=== PATIENT | female | born 1965 | race Caucasian/White ===

== ENCOUNTER 2017-02-09 20:42 | Emergency (ER) | payer SELFPAY ==
[~2017-02-09] VITALS: Ht 165.1 cm; Wt 114.0 kg
[~2017-02-09 20:42] MED LIST: DOCU-144 PO; IBUP-1542 PO; LISI10TA2 PO; OMEP40CA6 PO; PEG1POWD PO; TRAM-40 PO
[2017-02-09 21:16] VITALS: Ht 165.1 cm; Wt 114.0 kg
[2017-02-10 00:33] LABS: URINE BLOOD (Dip) POC 2+ (NEGATIVE)
[2017-02-10] MEDS ORDERED: morphine 4 MG/ML VIAL IV STA (00:43)
[2017-02-10] MEDS ORDERED: ONDANSETRON 4 MG INJ IV STA ×2 (00:43→03:11)
[2017-02-10 01:13] LABS: BASOPHIL # 0.1 10^3/ul (0.0-0.1); BASOPHILS % 0.8 % (0.0-2.0); EOSINOPHILS # 0.2 10^3/ul (0.0-0.5); EOSINOPHILS % 1.9 % (0.0-7.0); HEMATOCRIT 46.1 % (37.0-47.0); HEMOGLOBIN 14.6 g/dl (12.0-16.0); LYMPHOCYTES # 2.7 10^3/ul (0.8-2.9); LYMPHOCYTES % 28.6 % (15.0-51.0); MEAN CORPUSCULAR HEMOGLOBIN 29.6 pg (29.0-33.0); MEAN CORPUSCULAR HGB CONC 31.7 g/dl (32.0-37.0); MEAN CORPUSCULAR VOLUME 93.3 fl (82.0-101.0); MEAN PLATELET VOLUME 9.5 fl (7.4-10.4); MONOCYTE # 0.7 10^3/ul (0.3-0.9); MONOCYTES % 7.5 % (0.0-11.0); NEUTROPHILS % 60.4 % (39.0-77.0); PLATELET COUNT 276 10^3/UL (140-415); RED BLOOD COUNT 4.94 10^6/ul (4.20-5.40); WHITE BLOOD COUNT 9.3 10^3/ul (4.8-10.8)
[2017-02-10] MEDS ORDERED: LISI20TA11 PO (01:36)
[2017-02-10 02:16] LABS: ALBUMIN 3.9 g/dl (3.3-4.9); BILIRUBIN,INDIRECT 0.6 mg/dl (0-1.1); BILIRUBIN,TOTAL 0.6 mg/dl (0.2-1.3); CALCIUM 9.3 mg/dl (8.4-10.2); CREATININE 0.64 mg/dl (0.44-1.00); POTASSIUM 3.5 mmol/L (3.5-5.1); TOTAL PROTEIN 7.8 g/dl (6.1-8.1)
[2017-02-10] MEDS ORDERED: SOD CHLORIDE 0.9% 0 ML ONE (02:40)
[2017-02-10] MEDS ORDERED: IOHEXOL 300MG/ML 150 ML BTL ONE (02:40)
[2017-02-10] MEDS ORDERED: HYDROmorphONE 1 MG/ML SYG IV STA (03:11)
[2017-02-10] MEDS ORDERED: HYDROmorphONE 1 MG/ML SYG ONE (03:14)
--- NOTE | 2017-02-10 03:35 | RADRPT ---
PROCEDURE: CT ABDOMEN/PELVIS WITHOUT CONTRAST CLINICAL INDICATION: 51-year-old male with abdominal pain. TECHNIQUE: The study was performed utilizing a [employer] VCT 64-slice CT scanner. Direct axia l sections were obtained through the abdomen and pelvis without the use of intravenous contrast mate rial. Sagittal and coronal reformations were obtained. One or more of the following dose reduction t echniques were utilized: automated exposure control, adjustment of the mA and/or kV according to pat ient's size or use of iterative reconstruction technique. The images were reviewed on a PACS workst [employer]. CTD/vol = 22.9 mGy; Total Exam DLP = 1467.8 mGy-cm. COMPARISON: CT abdomen/pelvis March 11, 2016. FINDINGS: There is minimal bibasilar subsegmental atelectasis. There is a calcified granuloma within the left lung base measuring 5 x 5 mm. There is no evidence for significant pleural effusion. The liver engle s a normal size and contour without focal areas of abnormal density. No intrahepatic nor extrahepati c biliary ductal dilatation is seen. The gallbladder demonstrates no wall thickening nor pericholecy stic fluid. No biliary stones are evident. The pancreas is without areas of abnormal attenuation. T he spleen is identified and has a normal size without abnormal density. The adrenal glands are unrem arkable. The kidneys are without abnormal density. No hydroureteronephrosis nor nephroureterolithias is is evident. The urinary bladder is decompressed. There is no evidence for bowel obstruction. Ther e are multiple small diverticula within the descending and sigmoid colon without surrounding inflamm atory changes. The appendix is visualized and is without abnormal thickening or surrounding inflammatory reaction. The uterus is anteflexed. There is a left ovarian cyst measuring approximatel y 2.1 x 2.0 x 2.0 cm. There is no significant pelvic free fluid. The aortoiliac vessels are withou t aneurysmal dilatation. Mild degenerative changes are present throughout the spine. IMPRESSION: 1. Descending and sigmoid colon diverticulosis. 2. No CT evidence for appendicitis. 3. Left ovarian cyst. 4. Left lung base 5 mm granuloma. 5. Degenerative changes within the spine. .Gilbert Gissel, MD, Date Time Electronically viewed and signed by .Chai Chauhan MD, on 02/10/2017 03:35 .M/
[2017-02-10 03:59] LABS: ADD UMIC YES; UR ASCORBIC ACID NEGATIVE (NEGATIVE); UR BACTERIA FEW /HPF (NONE SEEN); UR BILIRUBIN (Dip) NEGATIVE (NEGATIVE); UR BLOOD (Dip) 1+ mg/dL (NEGATIVE); UR CLARITY CLEAR (CLEAR); UR COLOR YELLOW (YELLOW); UR GLUCOSE (Dip) NEGATIVE (NEGATIVE); UR KETONES (Dip) NEGATIVE (NEGATIVE); UR LEUKOCYTE ESTERASE (Dip) TRACE Leu/ul (NEGATIVE); UR NITRITE (Dip) NEGATIVE (NEGATIVE); UR RBC 1 /HPF (0-5); UR SPECIFIC GRAVITY (Dip) 1.005 (1.003-1.030); UR SQUAMOUS EPITHELIAL CELL FEW /HPF (FEW); UR TOTAL PROTEIN (Dip) 1+ mg/dl (NEGATIVE); UR UROBILINOGEN (Dip) NEGATIVE (NEGATIVE)
--- NOTE | 2017-02-10 04:03 | ERD ---
ER Documentation Chief Complaint Date/Time DATE: 02/10/17 TIME: 04:02 Chief Complaint back pain x 4 days and BENJAMIN x 3 days. BP has been uncontrolled HPI 51-year-old female back pain 4 days and headache for 3 days. Blood pressures been mostly controlled. Denies any fevers or chills. Denies any chest pain. Denies any other current complaints. ROS All systems reviewed and are negative except as per history of present illness. Medications Home Meds Active Scripts Docusate Sodium* (Colace*) 100 Mg Capsule, 100 MG PO BID for CONSTIPATION, #20 CAP Prov:LIV STUART MD 04/10/16 Reported Medications Lisinopril* (Lisinopril*) 20 Mg Tablet, 20 MG PO DAILY, #30 TAB 02/10/17 Discontinued Reported Medications Lisinopril* (Lisinopril*) 10 Mg Tablet, 10 MG PO DAILY, #30 TAB 04/07/16 Discontinued Scripts Peg 3350/Na Sulf,Bicarb,Cl/KCl (Golytely Packet) 1 Each Powd.pack, 1 EACH PO ONCE for CONSTIPATION, #1 Prov:LIV STUART MD 04/10/16 Ibuprofen* (Ibuprofen*) 600 Mg Tablet, 600 MG PO Q8 for PAIN, #30 TAB Prov:LIV STUART MD 04/10/16 Omeprazole* (Omeprazole*) 40 Mg Capsule.dr, 40 MG PO DAILY, #10 CAP Prov:CARMEN MORENO MD 04/07/16 Tramadol Hcl* (Ultram*) 50 Mg Tablet, 50 MG PO Q6H Y for PAIN, #14 TAB Prov:CAREMN MORENO MD 04/07/16 Allergies Allergies: Coded Allergies: No Known Allergies (Unverified Allergy, Mild, 02/10/17) PMhx/Soc History of Surgery: Yes (varicose veins right leg) Anesthesia Reaction: No Hx Neurological Disorder: No Hx Respiratory Disorders: No Hx Cardiac Disorders: Yes (HTN) Hx Psychiatric Problems: No Hx Miscellaneous Medical Probl: Yes (fibromyalgia, rheumatoid arthritis) Hx Alcohol Use: No Hx Substance Use: No Hx Tobacco Use: No Smoking Status: Never smoker Physical Exam Vitals Vital Signs Date Time Temp Pulse Resp B/P Pulse Ox O2 Delivery O2 Flow Rate FiO2 02/09/17 21:16 100.4 93 18 181/108 100 Physical Exam Const: [] Head: Atraumatic Eyes: Normal Conjunctiva ENT: Normal External Ears, Nose and Mouth. Neck: Full range of motion..~ No meningismus. Resp: Clear to auscultation bilaterally Cardio: Regular rate and rhythm, no murmurs Abd: Soft, non tender, non distended. Normal bowel sounds Skin: No petechiae or rashes Back: No midline or flank tenderness Ext: No cyanosis, or edema Neur: Awake and alert Psych: Normal Mood and Affect Result Diagram: 02/10/17 0050 02/10/17 0140 Results 24 hrs Laboratory Tests Test 02/10/17 00:39 02/10/17 00:50 02/10/17 01:40 02/10/17 02:40 Bedside Urine pH (LAB) 6.0 Bedside Urine Protein (LAB) 3+ Bedside Urine Glucose (UA) Negative Bedside Urine Ketones (LAB) Trace Bedside Urine Blood 2+ Bedside Urine Nitrite (LAB) Negative Bedside Urine Leukocyte Esterase (L Trace White Blood Count 9.310^3/ul Red Blood Count 4.9410^6/ul Hemoglobin 14.6g/dl Hematocrit 46.1% Mean Corpuscular Volume 93.3fl Mean Corpuscular Hemoglobin 29.6pg Mean Corpuscular Hemoglobin Concent 31.7g/dl Red Cell Distribution Width 14.0% Platelet Count 25239^3/UL Mean Platelet Volume 9.5fl Neutrophils % 60.4% Lymphocytes % 28.6% Monocytes % 7.5% Eosinophils % 1.9% Basophils % 0.8% Nucleated Red Blood Cells % 0.0/100WBC Neutrophils # (Manual) 5.610^3/ul Lymphocytes # 2.710^3/ul Monocytes # 0.710^3/ul Eosinophils # 0.210^3/ul Basophils # 0.110^3/ul Nucleated Red Blood Cells # 0.010^3/ul Sodium Level 142mmol/L Potassium Level 3.5mmol/L Chloride Level 101mmol/L Carbon Dioxide Level 28mmol/L Anion Gap 17 Blood Urea Nitrogen 10mg/dl Creatinine 0.64mg/dl Glucose Level 100mg/dl Calcium Level 9.3mg/dl Total Bilirubin 0.6mg/dl Direct Bilirubin 0.00mg/dl Indirect Bilirubin 0.6mg/dl Aspartate Amino Transf (AST/SGOT) 32IU/L Alanine Aminotransferase (ALT/SGPT) 64IU/L Alkaline Phosphatase 141IU/L Total Protein 7.8g/dl Albumin 3.9g/dl Globulin 3.90g/dl Albumin/Globulin Ratio 1.00 Lipase 98U/L Urine Color YELLOW Urine Clarity CLEAR Urine pH 6.0 Urine Specific [place] 1.005 Urine Ketones NEGATIVEmg/dL Urine Nitrite NEGATIVEmg/dL Urine Bilirubin NEGATIVEmg/dL Urine Urobilinogen NEGATIVEmg/dL Urine Leukocyte Esterase TRACELeu/ul Urine Microscopic RBC 1/HPF Urine Microscopic WBC 3/HPF Urine Squamous Epithelial Cells FEW/HPF Urine Bacteria FEW/HPF Urine Hemoglobin 1+mg/dL Urine Glucose NEGATIVEmg/dL Urine Total Protein 1+mg/dl Current Medications Medications (Trade) Dose Ordered Sig/Zeke Route PRN Reason Start Time Stop Time Status Last Admin Dose Admin Ondansetron HCl (Zofran Inj) 4 mg ONCE STAT IV 02/10/17 00:43 02/10/17 00:52 DC 02/10/17 00:56 Morphine Sulfate (morphine) 4 mg ONCE STAT IV 02/10/17 00:43 02/10/17 00:52 DC 02/10/17 00:56 IV Flush 10 ml 10 ml STK-MED ONCE .ROUTE 02/10/17 02:40 02/10/17 02:41 DC Sodium Chloride (NS) 0 ml @ ud STK-MED ONCE .ROUTE 02/10/17 02:40 02/10/17 02:41 DC Iohexol (Omnipaque 300mg/ ml) 150 ml STK-MED ONCE .ROUTE 02/10/17 02:40 02/10/17 02:41 DC Ondansetron HCl (Zofran Inj) 4 mg ONCE STAT IV 02/10/17 03:11 02/10/17 03:16 DC 02/10/17 03:18 Hydromorphone HCl (Dilaudid) 1 mg ONCE STAT IV 02/10/17 03:11 02/10/17 03:16 DC 02/10/17 03:20 Hydromorphone HCl (Dilaudid) 1 mg STK-MED ONCE .ROUTE 02/10/17 03:14 02/10/17 03:15 DC Procedures/MDM EKG: Rate/Rhythm: [Normal Sinus Rhythm] QRS, ST, T-waves: [No changes consistent w/ acute ischemia] Impression: [No evidence of ischemia or arrhythmia] Chest X-ray 1V Interpreted by me: Soft Tissue: No acute abnormalities Bones: No acute abnormalities Mediastinum/Cardiac Silhouette/Lungs: [No acute abnormalities] Medical decision-makin-year-old female consequence of abdominal pain and hypertension. Hypertension is resolved. Abdominal pain is resolved. No CT evidence of any surgical process in the abdomen. At this point clinically stable for outpatient management. Follow-up with PCP. Return in 8 hours for serial abdominal exams. Departure Diagnosis: Primary Impression: Abdominal pain Abdominal location: unspecified location Qualified Code: R10.9 - Abdominal pain, unspecified location Condition: Stable DAIJA SMALLS Feb 10, 2017 04:03
[2017-02-10] MEDS ORDERED: TRAM50TA2 PO (04:04)
[2017-02-10 04:16] VITALS: BP 149/85; PULSE 72; RESP 20; TEMP 98.8
== END 2017-02-10 04:25 | disposition home or self-care (01) ==
LOC: E/R 20:42
DX: R10.9 Unspecified abdominal pain (principal); I10 Essential (primary) hypertension; R51 Headache
CPT/HCPCS: 36415; 74176; 80053; 81001; 83690; 85025; 96374; 96375; 96376; 99285; J1170; J2270; J2405; 81003; Q9967

== ENCOUNTER 2017-12-10 13:17 | Emergency (ER) | END 2017-12-10 16:11 | disposition home or self-care (01) ==

== ENCOUNTER 2017-12-18 18:43 | Emergency (ER) | END 2017-12-18 23:39 | disposition home or self-care (01) ==

== ENCOUNTER 2018-09-08 11:55 | Emergency (ER) | payer OTHER ==
[~2018-09-08] VITALS: Ht 147.3 cm; Wt 107.0 kg
[~2018-09-08 11:55] MED LIST changes: +ALBU8.5H8 INH; +AMLO-145 PO; +ASPI-817 PO; -DOCU-144 PO; +HYDR-3980 PO; -LISI10TA2 PO; +LISI40TA3 PO; +METO-429 PO; +METO-448 PO; +OMEP20CA16 PO; -OMEP40CA6 PO; +ONDA4TAB14 PO; +OXYC-209 PO; -PEG1POWD PO; +PROM5SYR2 PO; -TRAM-40 PO
[2018-09-08 12:44] VITALS: BP 182/92; PULSE 63; RESP 19; Ht 147.3 cm; Wt 107.0 kg
[2018-09-08] MEDS ORDERED: MED4DP PO (13:11)
[2018-09-08] MEDS ORDERED: ALBU8.5H8 INH (13:11)
[2018-09-08] MEDS ORDERED: AZIT250T PO (13:11)
[2018-09-08] MEDS ORDERED: BENZ-6 PO (13:11)
[2018-09-08] MEDS ORDERED: PROM6.2515 PO (13:11)
--- NOTE | 2018-09-08 13:20 | ERD ---
ER Documentation Chief Complaint Chief Complaint COUGH HPI 52-year-old female presenting with cough. Patient has had it for the last month. She states is been worse and productive over the last 2 weeks with no fevers. She denies any fevers. Medical history is hypertension and fibromyalgia. NKDA. Surgical history shoulder surgery. Social history denies ROS All systems reviewed and are negative except as per history of present illness. Medications Home Meds Active Scripts Promethazine Hcl* (Promethazine Hcl* Syrup) 6.25 Mg/5 Ml Syrup, 6.25 MG PO Q6H PRN for COUGH, #100 ML Prov:TRINA BRADLEY PA-C 09/08/18 Benzonatate* (Tessalon Perle*) 100 Mg Capsule, 100 MG PO Q8H PRN for COUGH, #30 CAP Prov:TRINA BRADLEY PA-C 09/08/18 Methylprednisolone* (Medrol* DOSE PACK) 4 Mg/Dose-Pack Tab.ds.pk, 4 MG PO . DIRECTED, #1 PACKET Prov:TIRNA BRADLEY PA-C 09/08/18 Albuterol Sulfate* (Proair HFA*) 8.5 Gm Hfa.aer.ad, 2 PUFF INH Q4, #1 INHALER Prov:TRINA BRADLEY PA-C 09/08/18 Azithromycin* (Zithromax*) 250 Mg Tablet, 250 MG PO .ZPACK DIRECTED, #6 TAB TAKE 500 MG (2 TABS) THE FIRST DAY THEN 250 MG (1 TAB) DAYS 2-5 Prov:TRINA BRADLEY PA-C 09/08/18 Albuterol Sulfate* (Proair HFA*) 8.5 Gm Hfa.aer.ad, 2 PUFF INH Q4H PRN for WHEEZING AND SOB, #1 INHALER Prov:DAIJA LUNA 07/28/18 Ibuprofen* (Motrin*) 600 Mg Tab, 600 MG PO Q6H PRN for PAIN AND OR ELEVATED TEMP, #30 TAB Prov:DAIJA LUNA 07/28/18 Promethazine HCl/Codeine (Prometh-Codein 6.25-10 mg/5 ml) 5 Ml Syrup, 5 ML PO Q4 for cough, #4 OZ 0 Refills Prov:DAIJA LUNA 07/28/18 Oxycodone HCl/Acetaminophen (Percocet 10-325 mg Tablet) 1 Each Tablet, 1 EACH PO Q6 PRN for PAIN, #8 TAB Prov:MIKAEL RTOTTER MD 12/18/17 Ondansetron (Ondansetron Odt) 4 Mg Tab.rapdis, 4 MG PO Q6H PRN for NAUSEA AND/OR VOMITING, #10 TAB Prov:POLA CAMPOS MD 12/10/17 Hydrocodone/Acetaminophen (Bitely 10-325 Tablet) 1 Each Tablet, 1 TAB PO Q6H PRN for PAIN, #7 TAB Prov:POLA CAMPOS MD 12/10/17 Reported Medications Aspirin* (Aspirin* EC) 81 Mg Tablet.dr, 81 MG PO DAILY 12/10/17 Omeprazole* (Omeprazole*) 20 Mg Capsule.dr, 20 MG PO AC BREAKFAST, #30 CAP 12/10/17 Amlodipine Besylate* (Amlodipine Besylate*) 5 Mg Tablet, 5 MG PO DAILY 12/10/17 Metoprolol Tartrate* (Lopressor*) 50 Mg Tab, 50 MG PO BID, #60 TAB 12/10/17 Metoprolol Tartrate* (Lopressor*) 25 Mg Tab, 25 MG PO BID, #60 TAB 12/10/17 Lisinopril* (Lisinopril*) 40 Mg Tablet, 40 MG PO DAILY, #30 TAB 12/10/17 Allergies Allergies: Coded Allergies: No Known Allergies (Unverified Allergy, Mild, 09/08/18) PMhx/Soc History of Surgery: Yes (varicose veins right leg, l. shoulder) Anesthesia Reaction: No Hx Neurological Disorder: No Hx Respiratory Disorders: No Hx Cardiac Disorders: Yes (HTN) Hx Psychiatric Problems: No Hx Miscellaneous Medical Probl: Yes (fibromyalgia, rheumatoid arthritis) Hx Alcohol Use: No Hx Substance Use: No Hx Tobacco Use: No FmHx Family History: No diabetes, No coronary disease, No other Physical Exam Vitals Vital Signs Date Temp Pulse Resp B/P (MAP) Pulse Ox O2 O2 Flow FiO2 Time Delivery Rate 09/08/18 99.4 63 19 182/92 95 12:44 (122) Physical Exam GENERAL: The patient is well-appearing, well-nourished, in no acute distress HEENT: Atraumatic. Conjunctivae are pink. Pupils equal, round, and reactive to light. There is no scleral icterus. Tympanic membranes clear bilaterally. Oropharynx clear. No nystagmus or photophobia. NECK: C-spine is soft and supple. There is no meningismus. There is no cervical lymphadenopathy. CHEST: Clear to auscultation bilaterally. There are no rales, wheezes or rhonchi. HEART: Regular rate and rhythm. No murmurs, clicks, rubs or gallops. EXTREMITIES: Equal pulses bilaterally. There is no peripheral clubbing, cyanosis or edema. No focal swelling or erythema. Full range of motion. Grossly neurovascularly intact. NEUROLOGIC: Alert and oriented. Cranial nerves II through XII intact. Motor strength in all 4 extremities with 5 out of 5 strength. Sensation grossly intact. Normal speech and gait. Babinski negative. DTR 2+ throughout. Procedures/MDM MDM: 52-year-old female presenting with cough. I have low suspicion for respiratory distress or hypoxia. Patient be discharged with antibiotics and she had symptoms for the last month. I have low suspicion for sepsis. Patient is discharged stricter precautions and supportive medications. All questions answered at discharge. Patient is recommended to follow-up with primary care Departure Diagnosis: Primary Impression: Cough Condition: Stable Patient Instructions: Cough, Chronic, Uncertain Cause (Child) Referrals: [facility] YOU HAVE RECEIVED A MEDICAL SCREENING EXAM AND THE RESULTS INDICATE THAT YOU DO NOT HAVE A CONDITION THAT REQUIRES URGENT TREATMENT IN THE EMERGENCY DEPARTMENT. FURTHER EVALUATION AND TREATMENT OF YOUR CONDITION CAN WAIT UNTIL YOU ARE SEEN IN YOUR DOCTORS OFFICE WITHIN THE NEXT 1-2 DAYS. IT IS YOUR RESPONSIBILITY TO MAKE AN APPOINTMENT FOR FOLOW-UP CARE. IF YOU HAVE A PRIMARY DOCTOR --you should call your primary doctor and schedule an appointment IF YOU DO NOT HAVE A PRIMARY DOCTOR YOU CAN CALL OUR PHYSICIAN REFERRAL HOTLINE AT IF YOU CAN NOT AFFORD TO SEE A PHYSICIAN YOU CAN CHOSE FROM THE FOLLOWING [facility] [address] [place]. [facility] [address] [facility] [address] [facility] [address] [facility]. [facility] [address] [facility]. [facility] [address] Additional Instructions: FOLLOW UP WITH YOUR PRIMARY CARE PHYSICIAN TOMORROW.Return to this facility if you are not improving as expected. TRINA BRADLEY PA-C Sep 08, 2018 13:20
== END 2018-09-08 13:32 | disposition home or self-care (01) ==
LOC: FTE 11:55
DX: R05 Cough (principal); I10 Essential (primary) hypertension; Z79.82 Long term (current) use of aspirin
CPT/HCPCS: 99283

== ENCOUNTER 2018-11-27 09:54 | Emergency (ER) | payer OTHER ==
[~2018-11-27] VITALS: Wt 100.0 kg
[~2018-11-27 09:54] MED LIST changes: +AZIT250T PO; +BENZ-6 PO; +MED4DP PO; +PROM6.2515 PO
[2018-11-27 09:57] VITALS: BP 160/89; PULSE 89; RESP 18
--- NOTE | 2018-11-27 11:12 | ERD ---
ER Documentation Chief Complaint Chief Complaint s/p [facility] fall has back pain, right knee pain HPI 53-year-old female presents status post mechanical fall 4 days ago. She states she was at home and slipped on some water. She denies any head trauma or loss of consciousness. She reports that she landed on her back and right knee. Today she states that her low and mid back is in pain along with her right knee. States that the pain is a constant stinging pain 8 out of 10. She denies any radiation of her pain anywhere else. She has tried Tylenol at home with no relief of her pain symptoms. He states that she has a walker and she uses a regularly everywhere. She denies any saddle anesthesia, fever, loss of bowel or bladder bladder function. ROS All systems reviewed and are negative except as per history of present illness. Medications Home Meds Active Scripts Hydrocodone/Acetaminophen ([place] 5-325 Tablet) 1 Each Tablet, 1 TAB PO Q6H PRN for PAIN, #7 TAB Prov:LYNN BERNARD PA-C 11/27/18 Promethazine Hcl* (Promethazine Hcl* Syrup) 6.25 Mg/5 Ml Syrup, 6.25 MG PO Q6H PRN for COUGH, #100 ML Prov:TRINA BRADLEY PA-C 09/08/18 Benzonatate* (Tessalon Perle*) 100 Mg Capsule, 100 MG PO Q8H PRN for COUGH, #30 CAP Prov:TRINA BRADLEY PA-C 09/08/18 Methylprednisolone* (Medrol* DOSE PACK) 4 Mg/Dose-Pack Tab.ds.pk, 4 MG PO . DIRECTED, #1 PACKET Prov:TRINA BRADLEY PA-C 09/08/18 Albuterol Sulfate* (Proair HFA*) 8.5 Gm Hfa.aer.ad, 2 PUFF INH Q4, #1 INHALER Prov:TRINA BRADLEY PA-C 09/08/18 Azithromycin* (Zithromax*) 250 Mg Tablet, 250 MG PO .ZPACK DIRECTED, #6 TAB TAKE 500 MG (2 TABS) THE FIRST DAY THEN 250 MG (1 TAB) DAYS 2-5 Prov:TRINA BRADLEY PA-C 09/08/18 Albuterol Sulfate* (Proair HFA*) 8.5 Gm Hfa.aer.ad, 2 PUFF INH Q4H PRN for WHEEZING AND SOB, #1 INHALER Prov:DAIJA LUNA 07/28/18 Ibuprofen* (Motrin*) 600 Mg Tab, 600 MG PO Q6H PRN for PAIN AND OR ELEVATED TEMP, #30 TAB Prov:DAIJA LUNA 07/28/18 Promethazine HCl/Codeine (Prometh-Codein 6.25-10 mg/5 ml) 5 Ml Syrup, 5 ML PO Q4 for cough, #4 OZ 0 Refills Prov:PARK LUNAEL 07/28/18 Oxycodone HCl/Acetaminophen (Percocet 10-325 mg Tablet) 1 Each Tablet, 1 EACH PO Q6 PRN for PAIN, #8 TAB Prov:MIKAEL TROTTER MD 12/18/17 Ondansetron (Ondansetron Odt) 4 Mg Tab.rapdis, 4 MG PO Q6H PRN for NAUSEA AND/OR VOMITING, #10 TAB Prov:POLA CAMPOS MD 12/10/17 Hydrocodone/Acetaminophen ([place] 10-325 Tablet) 1 Each Tablet, 1 TAB PO Q6H PRN for PAIN, #7 TAB Prov:POLA CAMPOS MD 12/10/17 Reported Medications Aspirin* (Aspirin* EC) 81 Mg Tablet.dr, 81 MG PO DAILY 12/10/17 Omeprazole* (Omeprazole*) 20 Mg Capsule.dr, 20 MG PO AC BREAKFAST, #30 CAP 12/10/17 Amlodipine Besylate* (Amlodipine Besylate*) 5 Mg Tablet, 5 MG PO DAILY 12/10/17 Metoprolol Tartrate* (Lopressor*) 50 Mg Tab, 50 MG PO BID, #60 TAB 12/10/17 Metoprolol Tartrate* (Lopressor*) 25 Mg Tab, 25 MG PO BID, #60 TAB 12/10/17 Lisinopril* (Lisinopril*) 40 Mg Tablet, 40 MG PO DAILY, #30 TAB 12/10/17 Allergies Allergies: Coded Allergies: No Known Allergies (Unverified Allergy, Mild, 09/08/18) PMhx/Soc History of Surgery: Yes (varicose veins right leg, l. shoulder) Anesthesia Reaction: No Hx Neurological Disorder: No Hx Respiratory Disorders: No Hx Cardiac Disorders: Yes (HTN) Hx Psychiatric Problems: No Hx Miscellaneous Medical Probl: Yes (fibromyalgia, rheumatoid arthritis) Hx Alcohol Use: No Hx Substance Use: No Hx Tobacco Use: No FmHx Family History: diabetes Physical Exam Vitals Vital Signs Date Temp Pulse Resp B/P (MAP) Pulse Ox O2 O2 Flow FiO2 Time Delivery Rate 11/27/18 98.1 89 18 160/89 99 09:57 (112) Physical Exam Const: No acute distress, presents with her walker and a wheelchair Head: NCAT Neck: Full range of motion. NTTP midline, Good ROM. Cardio: Regular rate and rhythm, no murmurs Skin: No bruising, rashes, or open wounds Back: Tenderness in thoracic midline, nonspecific tenderness across lower back with pain worse on the right lower back Extrem: nonspecific Tenderness to lateral aspect of right knee, pain with ROM Neur: Awake and alert Psych: Normal Mood and Affect Results 24 hrs Current Medications Medications Dose Sig/Zeke Start Time Status Last (Trade) Ordered Route PRN Stop Time Admin Dose Reason Admin Ibuprofen 600 mg ONCE ONCE 11/27/18 DC 11/27/18 (Motrin) PO 11:30 11/27/18 11:07 11:31 Procedures/MDM ED COURSE: The patient was stable throughout ED course. I kept the patient and/or family informed of laboratory and diagnostic imaging results throughout the ED course. DIAGNOSTIC IMAGING: Read by radiologist. PROCEDURE: XR Knee. CLINICAL INDICATION: Fall TECHNIQUE: Three views of the right knee are available for review. COMPARISON: 05/22/2015 FINDINGS: There is no acute fracture or dislocation. There is mild to moderate joint space narrowing of the medial compartment as well as mild joint space narrowing of the patellofemoral compartment with tricompartmental osseous spurring. There is minimal joint space narrowing of the lateral compartment. There is increased joint space narrowing and osseous spurring compared to the prior study. A moderate joint effusion is present. There are small ossific or calcific structures overlying the anterior knee adjacent to the patella and patellar tendon. Soft tissues are otherwise unremarkable. RPTAT: DUTCH IMPRESSION: 1. No acute bony abnormality. 2. 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 3. Moderate joint effusion. .Di Santizo MD, Date Time Electronically viewed and signed by .Di Santizo MD, on 11/27/2018 11:51 PROCEDURE: XR Lumbar Spine. CLINICAL INDICATION: Fall TECHNIQUE: Two views of the lumbar spine are available for review COMPARISON: 10/31/[address] from 02/10/2017 FINDINGS: The vertebral bodies maintain normal height. There are no acute fractures. There is grade 1 anterolisthesis at L5-S1 of about 7 mm with mild to moderate disc space narrowing. There is moderate to severe facet arthropathy at L5-S1. Remaining disc spaces are maintained. The sacroiliac joints are intact with osseous spurring and sclerosis. Sacral arcuate lines are intact. RPTAT: ZZ IMPRESSION: 1. No acute fracture or malalignment of the lumbar spine. 2. Prominent facet arthropathy at L5-S1 with grade 1 anterolisthesis and mild to moderate degenerative disc disease. .Di Santizo MD, MD Date Time Electronically viewed and signed by .Di Santizo MD, on 11/27/2018 11:56 PROCEDURE: X-ray thoracic spine CLINICAL INDICATION: Fall TECHNIQUE: Two views of the thoracic spine are available for interpretation - frontal and lateral. COMPARISON: CT abdomen pelvis from 02/10/2017 FINDINGS: The vertebral body heights are preserved. There are no acute fractures. There is multilevel mild to moderate disc space narrowing throughout the thoracic spine with endplate osteophytes. The pedicles are intact. Alignment is maintained. The visualized ribs are intact. Cholecystectomy clips are visualized. RPTAT: ZZ IMPRESSION: 1. No acute fracture or malalignment of the thoracic spine. 2. Multilevel mild to moderate degenerative disc disease throughout the thoracic spine. .Di Santizo MD, MD Date Time Electronically viewed and signed by .Di Santizo MD, on 11/27/2018 11:53 MEDICATIONS GIVEN: Ibuprofen Patient tolerated medication well with no adverse reactions. Patient reported improvement in pain. MEDICAL DECISION MAKING: Patient is a 53-year-old female presents after slipping on water 4 days ago. X- ray imaging was performed and discussed in detail with the patient. H&P and other data not c/w emergent process (eg. MELINDA, E.A., obstructed pyelo, AAA, CAUDA EQUINA SYNDROME, CORD COMPRESSION, INFILTRATIVE, INFECTIOUS ETIOLOGY, EPIDURAL ABSCESS, FRACTURE). Patient was instructed to follow-up with primary care provider for possible Ortho referral for further management. vital signs were reviewed. Patient is afebrile. Patient was not hypoxic. Patient was hemodynamically stable. PRESCRIPTION: [place] DISCHARGE: At this time, patient is stable for discharge and outpatient management. I have instructed the patient to follow-up with his/her primary care physician in 1-2 days. I have discussed with the patient the possibility of needing to see a specialist for further workup and imaging studies if symptoms persist. I have instructed the patient to promptly return to the ER for any new or worsening symptoms including increased pain, fever, nausea, vomiting, weakness or LOC. The patient and/or family expressed understanding of and agreement with this plan. All questions were answered. Home care instructions were provided. Disclaimer: Inadvertent spelling and grammatical errors are likely due to EHR/dictation software use and do not reflect on the overall quality of patient care. Also, please note that the electronic time recorded on this note does not necessarily reflect the actual time of the patient encounter. Departure Condition: Fair Patient Instructions: Back And Neck Pain, General, Reducing Knee Pain and Swe lling Referrals: [facility] Additional Instructions: Call your primary care doctor TOMORROW for an appointment during the next 1-2 days.See the doctor sooner or return here if your condition worsens before your appointment time. LYNN BERNARD PA-C Nov 27, 2018 11:12
[2018-11-27] MEDS ORDERED: IBUPROFEN 600 MG TAB PO ONE (11:30)
[2018-11-27] MEDS ORDERED: HYDR-4011 PO (12:26)
== END 2018-11-27 12:34 | disposition home or self-care (01) ==
LOC: FTE 09:54
DX: M54.5 Low back pain (principal); I10 Essential (primary) hypertension; M25.561 Pain in right knee; Z79.82 Long term (current) use of aspirin
CPT/HCPCS: 72072; 72100; 73562; Z7502; Z7610

== ENCOUNTER 2019-03-15 08:54 | Emergency (ER) | payer OTHER ==
[~2019-03-15] VITALS: Ht 154.9 cm; Wt 90.0 kg
[~2019-03-15 08:54] MED LIST changes: +ALBU2SYR3 PO; +AMLO-147 PO; +AMOX500C2 PO; +CETI10CA PO; +HYDR-4011 PO; +NAPR-985 PO; -OMEP20CA16 PO; +OMEP20CA17 PO
[2019-03-15 08:59] VITALS: BP 129/72; PULSE 79; RESP 18; Ht 154.9 cm; Wt 90.0 kg
[2019-03-15] MEDS ORDERED: KETOROLAC 60 MG INJ IM STA (09:19)
[2019-03-15] MEDS ORDERED: DEXAMETHASONE 10 MG/ML 1 ML INJ IM ONE (09:30)
== END 2019-03-15 11:22 | disposition home or self-care (01) ==
LOC: FTE 08:54
DX: M54.5 Low back pain (principal); I10 Essential (primary) hypertension; F17.210 Nicotine dependence, cigarettes, uncomplicated; Z79.82 Long term (current) use of aspirin
CPT/HCPCS: 72131; 81025; 96372; J1100; J1885; Z7502